=== PATIENT | female | born 1955 | race Caucasian/White ===

== ENCOUNTER 2017-08-06 10:57 | Outpatient (CLI) | payer OTHER | END 2017-08-06 10:58 | disposition home or self-care (01) | LOC: DI 10:57 | PROVIDERS: ATTEND Internal Medicine | DX: I45.10 Unspecified right bundle-branch block (principal); R00.0 Tachycardia, unspecified; F17.200 Nicotine dependence, unspecified, uncomplicated; I51.7 Cardiomegaly | CPT/HCPCS: 93306 ==

== ENCOUNTER 2020-04-17 10:00 | Outpatient (CLI) | payer OTHER ==
[2020-04-17] MEDS ORDERED: GADOBUTROL 7.5 MMOL/7.5 ML VIAL ONE (10:23)
[2020-04-17] MEDS ORDERED: GADOBUTROL 7.5 MMOL/7.5 ML VIAL IVP ONE (11:17)
--- NOTE | 2020-04-17 14:13 | MRI Report ---
PROCEDURE: Lumbar Spine W/WO INDICATIONS: [id number] CONTRAST: IV CONTRAST: Gadavist ml: 6 TECHNIQUE: Noncontrast sagittal T1 spin echo and T2 fast spin echo, sagittal STIR, axial T1 and T2 fast spin ech o through the lumbar spine. In cases with scoliosis, additional coronal T2 fast spin echo may be per formed. After the administration of contrast, sagittal and axial T1 spin echo with fat saturation th rough the lumbar spine. COMPARISON: None. FINDINGS: Image quality: Excellent. Alignment and curvature: There is trace retrolithesis of L2 on L3, trace anterolithesis of L3 on L4. Marrow: Marrow is of normal overall signal. Severe reactive endplate changes are noted at L4-5. No acute vertebral body compression fractures. No suspicious marrow enhancement. Spinal cord: Conus medullaris terminates at the L1 level. Visualized spinal cord demonstrates jimy l signal, without suspicious enhancement. Paraspinous soft tissues: No paravertebral masses or abnormal enhancement. Discs: Moderate to severe dessication is present throughout the lumbar spine. L1-L2: Mnimal disc bulge without spinal stenosis. Minimal bilateral foraminal narrowing. Facet a nd ligamentum flavum hypertrophy. L2-L3: Mild disc bulge with mild to moderate spinal stenosis. Moderate to severe RA and mild left foraminal narrowing with facet and ligamentum flavum hypertrophy. L3-L4: Mild disc bulge with severe spinal stenosis. Severe left and moderate to severe right forami nal narrowing with mild flattening of the exiting left L3 nerve roots. L4-L5: Mild disc bulge including left lateral/foraminal component. Severe spinal stenosis and canal compression is present. There is severe left and [id number] right foraminal narrowing with fla ttening of the exiting left L4 nerve roots. Facet and ligamentum flavum hypertrophy are present. L5-S1: Mild disc bulge without spinal stenosis. Moderate bilateral foraminal narrowing with facet a nd ligamentum flavum hypertrophy. IMPRESSION: 1. Multilevel degenerative changes most severe at L4-5 demonstrates severe spinal stenosis secondary to disc bulge as well as facet/ligamentum flavum arthropathy. In addition, there is severe left sydnee inal narrowing with flattening of exiting nerve root secondary to facet arthropathy. Reviewed by: Rachel Hood MD on 04/17/2020 2:12 PM PDT Approved by: Rachel Hood MD on 04/17/2020 2:12 PM PDT Station ID: [id number]
== END 2020-04-17 10:01 | disposition home or self-care (01) ==
LOC: DI 10:00
PROVIDERS: ATTEND Internal Medicine
DX: M47.26 Other spondylosis with radiculopathy, lumbar region (principal); M51.36 Other intervertebral disc degeneration, lumbar region; M48.061 Spinal stenosis, lumbar region without neurogenic claudication
CPT/HCPCS: 72158; A9585